=== PATIENT | male | born 1980 | race Caucasian/White ===

== ENCOUNTER 2025-07-01 17:59 | Emergency (ER) | payer OTHER, SELFPAY ==
--- OUTSIDE RECORDS SUMMARY | 2025-07-01 18:09 | XMS_ITS | Patient Health Record ---
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 Name Role Phone Miquel Chavez Unavailable [phone] Reason For Referral No Information Problems Problem Type SNOMED Code ICD Code Onset Dates Problem Status W/U Status Risk Notes Problem Fatigue (27171015) Fatigue (780.79) 04/27/20 16 Active confirmed [id number]- Problem Sebaceous cyst (904947956) Sebaceous cyst (706.2) 04/27/20 16 Problem resolved confirmed [id number]- Problem Cough (92361874) Cough (786.2) 10/16/19 17 Problem resolved confirmed [id number]- Problem Mass of skin (732104276) Skin mass (782.2) 06/07/20 17 Problem resolved confirmed [id number]- Problem Elevated levels of transaminase & lactic acid dehydrogenase (176840961) Elevated SGPT (ALT) (790.4) 05/04/20 16 Problem resolved confirmed [id number]- Problem Tobacco user (605789399) Tobacco abuse affecting health (305.1) 04/27/20 16 Problem resolved confirmed [id number] 11- Problem Extrinsic asthma without status asthmaticus (79151999) Bronchospasm due to allergies (493.00) 04/27/20 16 Problem resolved confirmed [id number] 11- Problem Bloody stool (866057097) Bloody stool (578.1) 01/16/20 19 Problem resolved confirmed [id number]- Problem Low back pain (473813182) Lower back pain (724.2) 01/16/20 19 Problem resolved confirmed [id number] 11- Plan Of Treatment No Information
[2025-07-01 18:19] VITALS: BP 140/96; PULSE 90; RESP 17; TEMP 37.2; O2SAT 97
[2025-07-01] MEDS: tetanus-dipt-pertussis 0.5 mL SDV IM (18:39)
[2025-07-01] MEDS: lidocaine 2% INJ 20 mL INJECTION (18:39)
[2025-07-01 18:46] VITALS: PULSE 81; O2SAT 96
--- NOTE | 2025-07-01 19:00 | W.ED.WOUNDLC ---
HPI - Wound/Laceration General: Chief Complaint: Wound/Laceration Stated Complaint: Laceration on LT hand middle finger Time Seen by Provider: 07/01/25 18:20 Source: patient Mode of arrival: ambulatory Limitations: no limitations History of Present Illness: Patient is a 44-year-old male presents emergency department for evaluation after lacerating his left middle finger. States that he was slicing a ham, accidentally sliced across the finger pad and states that it was deep and he saw the bone. Bleeding is controlled on arrival, he wrapped it electrical tape. Tetanus is not up-to-date. He has intact movement and strength and sensations in the finger. No other injury. No foreign body contamination. No injury to the nailbed. Onset (ago): minute(s) Extremity Location: Left: hand (Middle finger) Place: home Patient tetanus UTD: No Context: accidental Associated symptoms: Denies chills, fever(s), nausea or vomiting Related Data Allergies Allergy/AdvReac Type Severity Reaction Status Date / Time No Known Allergies Allergy Verified 07/01/25 18:23 Review of Systems General: Reports: 10 or more systems reviewed and unremarkable except in HPI and below Const: Denies: fever(s) or chills Card: Denies: chest pain Resp: Denies: dyspnea GI: Denies: abdominal pain, nausea, vomiting or diarrhea Musc: Denies: extremity pain or joint pain Skin/Breast: Reports: new lesions (Laceration left middle finger); Denies: rash, skin pain or skin tenderness Neuro: Denies: headache(s) Physical Exam Const: COMMON NORMALS: no acute distress, average body habitus, patient oriented x3, no limitations, healthy appearing, alert and well nourished HENMT: COMMON NORMALS: normocephalic and atraumatic HEAD & SCALP: normocephalic and atraumatic Extremity: COMMON NORMALS: full ROM and capillary refill normal NARRATIVE EXTREMITY EXAM: Neurovascular exam of left middle finger normal, intact sensations and strength Neuro: COMMON NORMALS: patient oriented x3 SENSORIUM/ORIENTATION: Yes alert Skin: COMMON NORMALS: turgor normal NARRATIVE SKIN EXAM: The left finger pad there is 2 cm linear superficial laceration with no active bleeding or foreign body/contamination GENERAL SKIN EXAM: turgor normal Procedures Laceration Laceration 1: Site: hand Side (If applicable): left (Middle finger) Size (cm): 2 Description: linear Depth: simple, single layer Local Anesthetic: lidocaine 1% Amount of anesthesia used (mL): 1 Pre-repair: wound explored, irrigated extensively and deep structures intact Skin layer closed with: nylon Size (cm): 5-0 Number of sutures: 3 Technique: simple, interrupted Course Vital Signs: Vital signs: Vital Signs Temperature 98.9 F 07/01/25 18:19 Pulse Rate 88 07/01/25 19:12 Respiratory Rate 17 07/01/25 18:19 Blood Pressure 187/93 07/01/25 19:12 Pulse Oximetry 96 07/01/25 19:12 Oxygen Delivery Me thod Room Air 07/01/25 18:46 MDM - Wound/Laceration Medical Decision Making Patient presented after lacerating tuft of left middle finger after slicing ham. His tetanus is updated today in the ED. Neurovascular exam is intact. Laceration as documented in physical exam, was repaired here in emergency department, refer to the procedure note. This was cleaned here with normal saline thoroughly, deep structures intact, no requirement of antibiotics at this time, told of signs and symptoms watch for that warrant return to the ED, and will be discharged at this time. No radiology studies performed this visit Discharge Plan Discharge Patient Disposition: Home Clinical Impression: Laceration of left middle finger Qualifiers: Encounter type: initial encounter Damage to nail status: without damage Foreign body presence: without foreign body Qualified Code(s): S61.213A - Laceration without foreign body of left middle finger without damage to nail, initial encounter Condition: Stable Discharge Orders: Discharge ED (Routine); Ordered 07/01/25 Ordered By: Kody Bangura Referrals: Karlo Mcduffie MD [Primary Care Provider, Family Practice] Patient Instructions: Patient Portal & Tatyana Instructions Activity Restrictions/Additional Instructions: Discharge Instructions: Finger Laceration DIAGNOSIS: Laceration to the tip (tuft) of your left middle finger TREATMENT PROVIDED TODAY: Your wound was thoroughly cleaned and irrigated in the emergency department. Three sutures were placed to close the laceration. Your tetanus vaccination was updated. WOUND CARE AT HOME: Keep the wound covered with a clean, dry bandage for the first 24-48 hours. After this time, you may gently wash the wound with soap and water, but do not scrub or soak it. You may apply a thin layer of czcz-oqn-udqgarz antibiotic ointment (such as bacitracin or Neosporin) to the wound and cover with a clean bandage. Change the bandage daily or if it becomes wet or dirty. Keep your hand elevated above the level of your heart as much as possible for the first 48 hours to reduce swelling. You may get the wound wet after 24-48 hours during normal washing, but avoid prolonged soaking in water (no swimming, baths, or hot tubs) until the sutures are removed. SUTURE REMOVAL: Your sutures should be removed in 10-14 days. Please schedule an appointment with your primary care doctor or return to the emergency department for suture removal. Sutures on the hand need to stay in longer than other body areas because of the tension and movement in this location. WATCH FOR SIGNS OF INFECTION: Seek medical attention immediately if you develop any of the following: - Increasing redness spreading beyond the wound edges - Increasing pain or tenderness - Warmth around the wound - Swelling that gets worse after the first 2-3 days - Pus or drainage from the wound - Red streaks extending up your finger or hand - Fever of 100.4?F (38?C) or higher - Numbness or tingling in your finger ACTIVITY: You may use your hand for light activities, but avoid heavy lifting, gripping, or activities that put strain on the injured finger until the sutures are removed. PAIN MANAGEMENT: You may take rrki-hkd-nbjkasm pain medication such as acetaminophen (Tylenol) or ibuprofen (Advil, Motrin) as directed on the package for pain relief. FOLLOW-UP: Schedule an appointment for suture removal in 10-14 days. If you have any concerns about your wound before that time, contact your doctor or return to the emergency department. IMPORTANT NOTES: - No antibiotics were prescribed because your wound was clean and at low risk for infection. - Your tetanus vaccination is now up to date. - Your sensation and movement were normal at the time of your visit today. 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
[2025-07-01 19:12] VITALS: BP 187/93; PULSE 88; O2SAT 96
== END 2025-07-01 19:14 | disposition home or self-care (01) ==
PROVIDERS: Emergency Provider Physician Assistant; PCP Family Medicine
DX: S61.213A Laceration without foreign body of left middle finger without damage to nail, initial encounter (principal); W26.9XXA Contact with unspecified sharp object(s), initial encounter
CPT/HCPCS: 12001; 90471; 90715; 99283; J9999